=== PATIENT | female | born 1985 | race Caucasian/White ===

== ENCOUNTER 2017-09-22 23:33 | Emergency (ER) | payer SELFPAY ==
[~2017-09-22] VITALS: Ht 152.4 cm; Wt 65.0 kg
[~2017-09-22 23:33] MED LIST: AMOX875 PO; IBUP800T23 PO
[2017-09-22 23:42] VITALS: BP 124/68; PULSE 106; RESP 20; TEMP 98.5; O2SAT 95
--- NOTE | 2017-09-23 00:33 | PD ---
HPI Chief Complaint: OD/ Ingestion Time Seen by Provider: 00:22 Travel History International Travel<30 days: No Contact w/Intl Traveler<30days: No Traveled to known affect area: No History of Present Illness HPI 31-year-old female was brought via EMS after heroin overdose. Patient states that she shot up heroin this evening. A neighbor called EMS. Patient was found unresponsive. Patient was given Narcan 0.4 mg IV with good success. Patient was brought to ED for evaluation. Patient denies any headache. Patient denies any chest pain or shortness of breath. Patient denies abdominal pain. Patient denies any focal weakness or numbness of extremity. Patient denies any chance of being . Patient denies any medical problem. Patient denies any alcohol abuse. PFSH Past Medical History Medical History: Denies Significant Hx Influenza Vaccination: No ?: Not LMP: Sep 2017 : 1 Miscarriage: 1 Past Surgical History Surgical History: No Previous Surgery Social History Alcohol Use: Yes (3-4 times a week) Tobacco Use: Yes Substance Use: Yes Allergies-Medications (Allergen,Severity, Reaction): Coded Allergies: No Known Allergies (Verified Adverse Reaction, Unknown, 09/22/17) Reported Meds & Prescriptions Reported Meds & Active Scripts Active No Active Prescriptions or Reported Medications Review of Systems General / Constitutional: No: Fever Eyes: No: Visual changes HENT: No: Headaches Cardiovascular: No: Chest Pain or Discomfort Respiratory: No: Shortness of Breath Gastrointestinal: No: Abdominal Pain Genitourinary: No: Dysuria Musculoskeletal: No: Pain Skin: No Rash Neurologic: No: Weakness Psychiatric: No: Depression Endocrine: No: Polydipsia Hematologic/Lymphatic: No: Easy Bruising Physical Exam Narrative GENERAL: Well-nourished, well-developed patient. SKIN: Focused skin assessment warm/dry. HEAD: Normocephalic. EYES: No scleral icterus. No injection or drainage. Pupils 2 mm equal reactive. NECK: Supple, trachea midline. No JVD or lymphadenopathy. CARDIOVASCULAR: Regular rate and rhythm without murmurs, gallops, or rubs. RESPIRATORY: Breath sounds equal bilaterally. No accessory muscle use. GASTROINTESTINAL: Abdomen soft, non-tender, nondistended. MUSCULOSKELETAL: No cyanosis, or edema. BACK: Nontender without obvious deformity. No CVA tenderness. Neurologic exam: Patient's is drowsy however answer questions appropriately. No obvious focal neurological deficit. Data Data Last Documented VS Vital Signs Date Time Temp Pulse Resp B/P (MAP) Pulse Ox O2 Delivery O2 Flow Rate FiO2 09/22/17 23:42 98.5 106 20 124/68 (86) 95 Room Air MDM Medical Decision Making Medical Screen Exam Complete: Yes Emergency Medical Condition: Yes Differential Diagnosis Differential diagnosis including heroin overdose. Narrative Course 31-year-old female with heroin overdose. Patient was given Narcan with success. Patient will be observed in the ED until she is awake alert oriented 3 and steady on her feet and safely to be discharged. Diagnosis Primary Impression: Drug overdose Qualified Codes: T50.901A - Poisoning by unspecified drugs, medicaments and biological substances, accidental (unintentional), initial encounter Patient Instructions: General Instructions Additional Instructions: Advised [facility]. Follow-up with local physician. Med/Other Pt SpecificInfo: No Meds Exist/No RX given Scripts No Active Prescriptions or Reported Meds Disposition: 01 DISCHARGE HOME Condition: Stable Trenton Pina MD Sep 23, 2017 00:33
[2017-09-23 03:26] VITALS: BP 123/71; PULSE 97; RESP 16; O2SAT 96
== END 2017-09-23 03:50 | disposition home or self-care (01) ==
LOC: NEPE 23:33
DX: T40.1X1A Poisoning by heroin, accidental (unintentional), initial encounter (principal); Z72.0 Tobacco use
CPT/HCPCS: 99283